=== PATIENT | female | born 1975 | race Caucasian/White ===

== ENCOUNTER → 2018-05-02 | Outpatient (CLI) | payer OTHER | LOC: BMCIMAGING 08:14 | PROVIDERS: ATTEND Internal Medicine | DX: N92.1 Excessive and frequent menstruation with irregular cycle (principal); N88.9 Noninflammatory disorder of cervix uteri, unspecified; N83.291 Other ovarian cyst, right side; N83.292 Other ovarian cyst, left side ==

== ENCOUNTER → 2018-07-02 | Outpatient (CLI) | payer OTHER | LOC: BMCIMAGING 07:18 | PROVIDERS: ATTEND Internal Medicine | DX: N83.12 Corpus luteum cyst of left ovary (principal) ==